=== PATIENT | female | born 1990 | race Caucasian/White ===

== ENCOUNTER 2019-08-14 06:30 | Inpatient (IN) ==
[2019-08-14] MEDS ORDERED: ANCEF 1 GRAM IV PREMIX* 1 G/50 ML BAG IV ONE ×2 (06:33→06:43)
[2019-08-14] MEDS ORDERED: LR 1000 ML IV 1,000 ML IV ONE ×3 (06:33→08:09)
[2019-08-14] MEDS ORDERED: ANCEF VIAL 1 GRAM IVP ONE (06:49)
[2019-08-14] MEDS ORDERED: D5 1/2 NS 1000 ML 1,000 ML IV SCH (06:49)
[2019-08-14] MEDS ORDERED: XYLOCAINE 1 % (PLAIN) ONE (06:54)
[2019-08-14] MEDS ORDERED: DILAUDID INJ ONE (06:54)
[2019-08-14] MEDS ORDERED: REGLAN INJ 10 MG VIAL IVP PRN ×2 (09:13→10:33)
[2019-08-14] MEDS ORDERED: PHENERGAN INJ 25 MG IM PRN (09:13)
[2019-08-14] MEDS ORDERED: BENADRYL INJ 50 MG VIAL IVP PRN ×2 (09:13→10:33)
[2019-08-14] MEDS ORDERED: ZOFRAN INJ 4 MG VIAL IVP PRN ×2 (09:13→10:33)
[2019-08-14] MEDS ORDERED: TORADOL 30 MG VIAL ONE (09:26)
[2019-08-14] MEDS ORDERED: TORADOL 30 MG VIAL IVP PRN (10:33)
[2019-08-14] MEDS ORDERED: D5 1/2 NS 1000 ML 1,000 ML with PITOCIN 20 UNITS IV SCH ×2 (10:33)
[2019-08-14] MEDS ORDERED: NARCAN INJ IVP PRN (10:33)
[2019-08-14] MEDS ORDERED: MYLICON TAB 80 MG CHEW PO PRN (10:33)
[2019-08-14] MEDS ORDERED: PERCOCET TAB 5/325 MG PO PRN ×2 (10:33→17:13)
[2019-08-14] MEDS ORDERED: ADACEL or BOOSTRIX TDaP VACCINE IM ONE (10:33)
[2019-08-14] MEDS ORDERED: REGLAN INJ 10 MG VIAL ONE (15:45)
[2019-08-14] MEDS ORDERED: ZOFRAN INJ 4 MG VIAL ONE (15:45)
[2019-08-14] MEDS ORDERED: NEO-SYNEPHRINE INJ ONE (15:45)
[2019-08-14] MEDS ORDERED: PITOCIN ONE (15:45)
[2019-08-14] MEDS ORDERED: DIPRIVAN VIAL ONE (15:45)
[2019-08-14] MEDS ORDERED: XYLOCAINE 2 % (PLAIN) ONE (15:45)
[2019-08-14] MEDS: MOTRIN TAB 800 MG PO PRN (18:53)
[2019-08-14] MEDS: FERROUS GLUCONATE PO SCH (18:53)
[2019-08-14] MEDS: COLACE CAP 100 MG PO SCH (20:42)
[2019-08-14] MEDS: BACTROBAN CREAM TOP SCH (21:54)
[2019-08-14] MEDS ORDERED: BENADRYL CAP/TAB 25 MG PO ONE (21:57)
[2019-08-15] MEDS: MOTRIN TAB 800 MG PO PRN ×2 (02:00→11:17)
[2019-08-15 06:22] LABS: HEMATOCRIT 25.6 % (36.0-47.0); HEMOGLOBIN 8.9 g/dL (12.0-16.0)
[2019-08-15] MEDS: BACTROBAN CREAM TOP SCH ×2 (06:57→14:17)
[2019-08-15] MEDS: FERROUS GLUCONATE PO SCH (08:10)
[2019-08-15] MEDS: COLACE CAP 100 MG PO SCH (08:10)
[2019-08-15] MEDS ORDERED: PROTONIX TAB 40 MG PO SCH (09:00)
[2019-08-15] MEDS ORDERED: PRENATAL PLUS PO SCH (09:00)
[2019-08-15 13:48] VITALS: BP 115/66
[2019-08-15] MEDS ORDERED: ADACEL or BOOSTRIX TDaP VACCINE IM ONE (14:22)
== END 2019-08-15 15:10 | disposition home or self-care (01) | DRG 784 ==
LOC: LD 06:30 → MED/SURG 09:58
PROVIDERS: ADMIT Specialist; ATTEND Specialist
DX: Z23 Encounter for immunization; B95.1 Streptococcus, group B, as the cause of diseases classified elsewhere; O99.824 Streptococcus B carrier state complicating childbirth; O99.613 Diseases of the digestive system complicating pregnancy, third trimester; Z37.0 Single live birth; N85.8 Other specified noninflammatory disorders of uterus; Z3A.39 39 weeks gestation of pregnancy; Z30.2 Encounter for sterilization; O98.313 Other infections with a predominantly sexual mode of transmission complicating pregnancy, third trimester; O34.211 Maternal care for low transverse scar from previous cesarean delivery